=== PATIENT | female | born 1995 | race Caucasian/White ===

== ENCOUNTER 2016-10-14 22:12 | Emergency (ER) | payer BC ==
[2016-10-14 22:23] VITALS: BP 136/74
--- NOTE | 2016-10-14 23:04 | EDM.PDOC ---
ED HISTORY OF PRESENT ILLNESS - General Chief Complaint: Respiratory Problem Stated Complaint: COUGH SORE THROAT Time Seen by Provider: 10/14/16 22:26 Source of Information: Reports: Patient, RN notes reviewed - History of Present Illness INITIAL COMMENTS - FREE TEXT/NARRATIVE: 21-year-old female comes in with concern about severe cough and some difficulty breathing. She first became ill about 8-10 days ago with nasal and sinus congestion. She was started on Z-Oseas for sinusitis. She started developing severe cough about 3 or 4 days ago. She was seen at one of the clinics today, prescribed doxycycline 100 mg twice a day and also prednisone. The cough has been more severe and bothersome this evening. She also feels more short of breath. she's had some chills and possible low-grade and continues to have nasal and sinus congestion - Related Data Allergies/ADRs: Allergies Allergy/AdvReac Type Severity Reaction Status Date / Time Penicillins Allergy Intermediate Hives Verified 10/14/16 22:23 Home Meds: Home Meds Ibuprofen [Motrin] 800 mg PO Q6H PRN 09/24/13 [History] Doxycycline [Vibramycin] 1 tab PO BID 10/14/16 [History] Orphenadrine [Norflex] 1 tab PO BID 10/14/16 [History] predniSONE 20 mg PO DAILY 10/14/16 [History] Past Medical History - Past Surgical History HEENT Surgical History: Reports: Oral surgery, Tonsillectomy Musculoskeletal Surgical History: Reports: Other (see below) Other Musculoskeletal Surgeries/Procedures:: arm surgery Social & Family History - Tobacco Use Smoking Status *Q: Never Smoker Second Hand Smoke Exposure: No - Caffeine Use Caffeine Use: Reports: None - Recreational Drug Use Recreational Drug Use: No ED ROS GENERAL - Review of Systems Review Of Systems: See Below Constitutional: Reports: fever, chills HEENT: Reports: Throat pain Respiratory: Reports: Shortness of Breath, Wheezing, Cough, Sputum (Scan) Cardiovascular: Reports: Chest pain GI/Abdominal: Reports: Nausea. Denies: Abdominal pain, Vomiting Musculoskeletal: Reports: other (Generalized achiness) Skin: Denies: rash Neurological: Denies: Numbness, Tingling ED EXAM, GENERAL - Physical Exam Exam: See Below General Appearance: alert, mild distress, other (Frequent nonproductive cough) Eye Exam: bilateral eye: PERRL Nose: normal inspection Throat/Mouth: Inflammation (Mild posterior) Head: No: facial swelling Neck: supple, full range of motion. No: lymphadenopathy (L), lymphadenopathy (R ) Respiratory/Chest: respiratory distress (Mild tachypnea). No: rhonchi, wheezing Cardiovascular: tachycardia Extremities: normal inspection, normal range of motion Neurological: alert, oriented, no motor/sensory deficits Skin Exam: Warm, Dry, Normal color Course - Vital Signs Last Recorded V/S: Last Vital Signs Temp 98.7 F 10/14/16 22:19 Pulse 100 10/14/16 22:19 Resp 18 10/14/16 22:19 BP 136/74 10/14/16 22:19 Pulse Ox 99 10/14/16 22:19 Departure - Departure Time of Disposition: 23:02 Disposition: Home, Self-Care 01 Condition: fair Clinical Impression: Bronchitis, Bronchitis Instructions: Acute Bronchitis, [id number] Referrals: Bing Gu VOCATIONAL NURSE [Primary Care Provider] - Forms: ED Department Discharge, Return to Work/School Form Additional Instructions: Continue doxycycline as previously prescribed, take prednisone as prescribed, drink plenty of fluids, vaporizer or steam as needed. Phenergan with codeine cough medication as needed for severe cough and to help you rest, albuterol inhaler 2 puffs every 4-6 hours as needed for severe cough or wheezing, followup clinic if not much better within 3-5 days
== END 2016-10-14 23:13 | disposition home or self-care (01) ==
LOC: JD.ED 22:12
DX: J40 Bronchitis, not specified as acute or chronic (principal); Z88.0 Allergy status to penicillin; Z79.899 Other long term (current) drug therapy; Z98.890 Other specified postprocedural states
CPT/HCPCS: 99283

== ENCOUNTER 2016-10-15 00:20 | Emergency (ER) | payer BC ==
[2016-10-15 00:35] VITALS: BP 150/84
[2016-10-15] MEDS ORDERED: Albuterol 0.083% 2.5 MG/3 ML Neb Soln NEB ONE (00:48)
[2016-10-15] MEDS ORDERED: predniSONE 20 MG Tab PO ONE (00:48)
[2016-10-15] MEDS ORDERED: predniSONE 20 MG Tab ONE (00:54)
[2016-10-15] MEDS ORDERED: Ondansetron 4 MG Tab.DIS PO ONE (01:37)
--- NOTE | 2016-10-15 02:16 | EDM.PDOC ---
ED HISTORY OF PRESENT ILLNESS - General Chief Complaint: Respiratory Problem Stated Complaint: SHORTNESS OF BREATH Time Seen by Provider: 10/15/16 00:45 Source of Information: Reports: Patient, RN notes reviewed - History of Present Illness INITIAL COMMENTS - FREE TEXT/NARRATIVE: 21-year-old female returns to the ED after discharge just a very short time ago evaluation and treatment of bronchitis and upper respiratory infection. Please see that record for details. Order been seen at the clinic earlier today and also late last week about 6 days ago. She is on her second round of antibiotics. Prednisone was prescribed earlier today at the clinic she has not taken it yet. She came in this past evening primarily because of severe repetitive nonproductive cough. She was prescribed an albuterol inhaler and also Phenergan with codeine cough medication to help her rest. She went home took a warm shower and became much more short of breath which is her major concern and problem at this time. Her cough continues to be nonproductive. - Related Data Allergies/ADRs: Allergies Allergy/AdvReac Type Severity Reaction Status Date / Time Penicillins Allergy Intermediate Hives Verified 10/14/16 22:23 Home Meds: Home Meds Ibuprofen [Motrin] 800 mg PO Q6H PRN 09/24/13 [History] Doxycycline [Vibramycin] 1 tab PO BID 10/14/16 [History] Orphenadrine [Norflex] 1 tab PO BID 10/14/16 [History] predniSONE 20 mg PO DAILY 10/14/16 [History] Ondansetron [Zofran ODT] 4 mg PO Q6H PRN #7 tab.dis 10/15/16 [Rx] Past Medical History - Past Surgical History HEENT Surgical History: Reports: Oral surgery, Tonsillectomy Musculoskeletal Surgical History: Reports: Other (see below) Other Musculoskeletal Surgeries/Procedures:: arm surgery Social & Family History - Family History Family Medical History: Noncontributory - Tobacco Use Smoking Status *Q: Never Smoker Second Hand Smoke Exposure: No - Caffeine Use Caffeine Use: Reports: None - Recreational Drug Use Recreational Drug Use: No ED ROS GENERAL - Review of Systems Review Of Systems: See Below Constitutional: Reports: fever (Patient has had intermittent low-grade fever and now after the warm shower presents with temp of 101.4) HEENT: Reports: Sinus problem (Has been nasal and sinus congestion), Throat pain Respiratory: Reports: Cough (Severe repetitive nonproductive). Denies: Sputum, Hemoptysis Cardiovascular: Reports: Chest pain (With coughing) GI/Abdominal: Reports: Nausea. Denies: Abdominal pain, Vomiting Musculoskeletal: Denies: neck pain, shoulder pain Skin: Denies: rash Neurological: Denies: Numbness, Tingling ED EXAM, GENERAL - Physical Exam Exam: See Below General Appearance: alert, anxious, moderate distress, other (Frequent nonproductive cough) Eye Exam: bilateral eye: PERRL Throat/Mouth: Inflammation (Posterior pharynx is mildly inflamed) Neck: supple. No: lymphadenopathy (L), lymphadenopathy (R) Respiratory/Chest: wheezing (Patient does have some mild wheezing on expiration , moving air fairly well in spite of that). No: rhonchi, stridor Cardiovascular: tachycardia Neurological: alert, oriented, no motor/sensory deficits Skin Exam: Warm, Dry, No rash Course - Vital Signs Last Recorded V/S: Last Vital Signs Temp 101.4 F H 10/15/16 00:32 Pulse 121 H 10/15/16 00:32 Resp 24 H 10/15/16 00:32 BP 150/84 H 10/15/16 00:32 Pulse Ox 98 10/15/16 00:55 - Orders/Labs/Meds Orders: Active Orders 24 hr Category Date Time Status RT Aerosol Therapy [RC] ASDIRECTED Care 10/15/16 00:49 Active Chest 1V Frontal [CR] Stat Exams 10/15/16 01:37 Taken Meds: Medications Discontinued Medications Generic Name Dose Route Start Last Admin Trade Name Freq PRN Reason Stop Dose Admin Albuterol 2.5 mg 10/15/16 00:48 10/15/16 00:53 Proventil Neb Soln NEB 10/15/16 00:49 2.5 mg ONETIME ONE Administration Ondansetron HCl 4 mg 10/15/16 01:37 10/15/16 01:46 Zofran Odt PO 10/15/16 01:38 4 mg ONETIME ONE Administration Prednisone 40 mg 10/15/16 00:48 10/15/16 00:54 Prednisone PO 10/15/16 00:49 40 mg ONETIME ONE Administration Prednisone Confirm 10/15/16 00:54 10/15/16 00:54 Prednisone Administered 10/15/16 00:55 Not Given Dose 20 mg .ROUTE .STK-MED ONE - Re-Assessments/Exams Free Text/Narrative Re-Assessment/Exam: 10/15/16 02:25 We did give an albuterol neb treatment. She states her chest still feels "tight " but she is breathing and moving air more comfortably. I do not hear wheezing on repeat exam. She did vomit a short time ago, she states this was do to gag and sensation in her throat. We have given Zofran 4 mg ODT. We did check a chest x-ray to make sure she does not have a developing pneumonia. Chest x-ray is clear. Discharge instructions as documented Departure - Departure Time of Disposition: 02:12 Disposition: Home, Self-Care 01 Clinical Impression: Bronchitis Upper respiratory infection Qualifiers: URI type: unspecified URI Qualified Code(s): J06.9 - Acute upper respiratory infection, unspecified Dyspnea Qualifiers: Dyspnea type: unspecified Qualified Code(s): R06.00 - Dyspnea, unspecified Prescriptions: Ondansetron [Zofran ODT] 4 mg PO Q6H PRN #7 tab.dis PRN Reason: Nausea/Vomiting Instructions: Shortness of Breath, Acute Bronchitis, [id number], Upper Respiratory Infection, Adult, [id number] Referrals: PCP,Unknown [Primary Care Provider] - Forms: ED Department Discharge Additional Instructions: Rest, drink plenty of water to maintain hydration, continue current medications as previously prescribed, I recommend you take the prednisone once daily in the morning. Use the albuterol inhaler 2 puffs every 4-6 hours as needed for cough or difficulty breathing, Zofran if needed for further nausea or vomiting, followup clinic if not much better within 3-4 days as expected, return to ED as needed - My Orders Last 24 Hours: My Active Orders 10/15/16 00:49 RT Aerosol Therapy [RC] ASDIRECTED 10/15/16 01:37 Chest 1V Frontal [CR] Stat - Assessment/Plan Last 24 Hours: My Active Orders 10/15/16 00:49 RT Aerosol Therapy [RC] ASDIRECTED 10/15/16 01:37 Chest 1V Frontal [CR] Stat
--- NOTE | 2016-10-15 10:54 | CR ---
Chest: Portable view of the chest was obtained. Comparison: Previous chest x-ray of 08/03/11. Heart size and mediastinum are within normal limits. Lungs are clear. Bony structures are grossly intact. Minimal scoliosis is noted. Impression: 1. Nothing acute is identified on portable chest x-ray. Diagnostic code #1
== END 2016-10-15 02:29 | disposition home or self-care (01) ==
LOC: JD.ED 00:20
DX: J40 Bronchitis, not specified as acute or chronic (principal); J06.9 Acute upper respiratory infection, unspecified; Z98.890 Other specified postprocedural states; Z79.899 Other long term (current) drug therapy; Z88.0 Allergy status to penicillin
CPT/HCPCS: 71010; 94664; 99285; A9270; 99283

== ENCOUNTER 2019-09-28 18:40 | Emergency (ER) | payer BC ==
--- NOTE | 2019-09-28 18:54 | EDM.PDOC ---
ED HPI GENERAL MEDICAL PROBLEM - General Chief Complaint: Lower Extremity Injury/Pain Stated Complaint: left ankle injury Time Seen by Provider: 09/28/19 18:42 Source of Information: Reports: Patient History Limitations: Reports: No Limitations - History of Present Illness INITIAL COMMENTS - FREE TEXT/NARRATIVE: Patient is a 24-year-old female who presents with complaints of pain to her left ankle after stepping in a hole. She states that after stepping in a hole she states that she felt a pop and has been having pain since the injury. This happened about 10 to 15 minutes prior to arrival. She has not taken anything for pain. States it is very painful to bear weight. No history of previous injury to that extremity. Left Ankle Pain Score (Numeric/FACES): 10 - Related Data Allergies Allergy/AdvReac Type Severity Reaction Status Date / Time Penicillins Allergy Intermediate Hives Verified 09/28/19 18:49 Home Meds: Home Meds Ibuprofen [Motrin] 800 mg PO Q6H PRN 09/24/13 [History] Past Medical History Cardiovascular History: Reports: None Respiratory History: Reports: None Gastrointestinal History: Reports: None Genitourinary History: Reports: None FUR COMBER History: Reports: None Neurological History: Reports: None Psychiatric History: Reports: None Endocrine/Metabolic History: Reports: Obesity/BMI 30+ Hematologic History: Reports: None Immunologic History: Reports: None Oncologic (Cancer) History: Reports: None Dermatologic History: Reports: None - Infectious Disease History Infectious Disease History: Reports: None - Past Surgical History HEENT Surgical History: Reports: Adenoidectomy, Oral Surgery, Tonsillectomy Musculoskeletal Surgical History: Reports: Other (See Below) Other Musculoskeletal Surgeries/Procedures:: 3 arm surgeries on the right side. Social & Family History - Family History Family Medical History: Noncontributory - Tobacco Use Smoking Status *Q: Never Smoker - Caffeine Use Caffeine Use: Reports: Coffee, Energy Drinks - Recreational Drug Use Recreational Drug Use: No Review of Systems - Review of Systems Review Of Systems: Comprehensive ROS is negative, except as noted in HPI. ED EXAM, GENERAL - Physical Exam Exam: See Below Exam Limited By: No Limitations General Appearance: Alert, WD/WN, No Apparent Distress Respiratory/Chest: No Respiratory Distress, Lungs Clear, Normal Breath Sounds, No Accessory Muscle Use, Chest Non-Tender Cardiovascular: Normal Peripheral Pulses, Regular Rate, Rhythm, No Edema, No Gallop, No JVD, No Murmur, No Rub Extremities: Other (tenderness and mild edema to the lateral malleolus and posterior ankle. CMS intact distal to the injury.) Neurological: Alert, Oriented, CN II-XII Intact, Normal Cognition, Normal Gait, Normal Reflexes, No Motor/Sensory Deficits Psychiatric: Normal Affect, Normal Mood Course - Vital Signs Last Recorded V/S: Last Vital Signs Temp 97.7 F 09/28/19 18:46 Pulse 104 H 09/28/19 18:46 Resp 20 09/28/19 18:46 BP 122/88 09/28/19 18:46 Pulse Ox 98 09/28/19 18:46 - Orders/Labs/Meds Orders: Active Orders 24 hr Category Date Time Status DME for Discharge [COMM] Routine Oth 09/28/19 19:26 Ordered - Re-Assessments/Exams Free Text/Narrative Re-Assessment/Exam: xray was negative for any acute fractures. We will apply an air splint and provide crutches. Discharge instructions as documented. Departure - Departure Time of Disposition: 19:58 Disposition: Home, Self-Care 01 Condition: Good Clinical Impression: Ankle sprain Qualifiers: Encounter type: initial encounter Involved ligament of ankle: unspecified ligament Laterality: left Qualified Code(s): S93.402A - Sprain of unspecified ligament of left ankle, initial encounter - Discharge Information *PRESCRIPTION DRUG MONITORING PROGRAM REVIEWED*: No *COPY OF PRESCRIPTION DRUG MONITORING REPORT IN PATIENT [place]: No Instructions: Ankle Sprain, [id number] Referrals: Viji Rubio PA-C [Primary Care Provider] - Jones Garcia MD [Physician] - Forms: ED Department Discharge, ED Return to Work/School Form Additional Instructions: You were seen in the emergency department today for pain and swelling to her left ankle after stepping in a hole. X-rays were done and shows no fractures. You likely sprained your ankle. You have been provided an air splint as well as crutches. Use these for the next couple days. You may then begin to gradually bear weight on the extremity still using the air splint. After a few days of walking with the air splint, you may start walking without the air splint. Recommend that she elevate the extremity when at rest and ice over the area intermittently. You may use [id number] Tylenol or ibuprofen as needed for any pain. If you are still having significant pain by the end of next week, I would recommend that you follow-up with Dr. Garcia, orthopedics. The number to schedule with him is listed below. Return to the ER as needed. Sepsis Event Note - Evaluation Sepsis Screening Result: No Definite Risk - Focused Exam Date Exam was Performed: 09/29/19 Time Exam was Performed: 13:04 - My Orders Last 24 Hours: My Active Orders 09/28/19 19:26 DME for Discharge [COMM] Routine - Assessment/Plan Last 24 Hours: My Active Orders 09/28/19 19:26 DME for Discharge [COMM] Routine
[2019-09-28 19:19] VITALS: BP 122/88; PULSE 104
--- NOTE | 2019-09-28 19:22 | CR ---
Left ankle: 4 views left ankle were obtained. Comparison: No prior left ankle study is available. Ankle mortise is symmetric. No fracture, dislocation or other bony abnormality is appreciated. Impression: 1. No abnormality is appreciated on left ankle exam. Diagnostic code #1 Study was dictated in MDT
== END 2019-09-28 20:05 | disposition home or self-care (01) ==
LOC: JD.ED 18:40
DX: S93.402A Sprain of unspecified ligament of left ankle, initial encounter (principal); Z88.0 Allergy status to penicillin; E66.9 Obesity, unspecified; Z68.32 Body mass index [BMI] 32.0-32.9, adult; X50.9XXA Other and unspecified overexertion or strenuous movements or postures, initial encounter
CPT/HCPCS: 73610-26-LT; 73610-LT; 99282; 99283-25

== ENCOUNTER 2021-03-11 17:55 | Emergency (ER) | payer OTHER, BC ==
[2021-03-11 18:52] VITALS: BP 133/93; PULSE 90
[2021-03-11] MEDS ORDERED: Sodium Chloride 0.9% 1,000 ML IV STA (19:27)
[2021-03-11] MEDS ORDERED: Ondansetron 4 MG/2 ML SDV IVPUSH ONE (19:27)
[2021-03-11] MEDS ORDERED: HYDROmorphone 0.5 MG/0.5 ML Syringe IVPUSH ONE (19:27)
--- NOTE | 2021-03-11 19:33 | EDM.PDOC ---
ED HPI GENERAL MEDICAL PROBLEM - General Chief Complaint: Upper Extremity Injury/Pain Stated Complaint: POSS ARM INFECTION Time Seen by Provider: 03/11/21 19:19 Source of Information: Reports: Patient, RN Notes Reviewed History Limitations: Reports: No Limitations - History of Present Illness INITIAL COMMENTS - FREE TEXT/NARRATIVE: Patient is a 26-year-old female presenting to the emergency department from the [facility]. She reports Tuesday, she cut her right hand on a place of plastic at work. That evening, she developed swelling in the hand. Yesterday during the day, she thought it was getting better, however upon waking today, the swelling extended into her forearm and she feels like she is swollen up through her arm as well. She has significant pain and throbbing to the area. Denies any fever. At the [facility], x-rays were done. She states that they were going to do blood work, however that did not happen. She did not get the results of her x-ray. They told her to come to the ER and that it is "life-threatening and limb threatening. We did receive a call from the clinician at [facility] and there was concern that she could have necrotizing fasciitis. Patient denies any fevers. Last took Advil around 4:00 this morning. She has not eaten anything today. Treatments JOB SETTER HONING: Reports: Other (see below) Other Treatments JOB SETTER HONING: advil at 0345 Right Arm Pain Score (Numeric/FACES): 10 - Related Data Allergies Allergy/AdvReac Type Severity Reaction Status Date / Time Penicillins Allergy Severe Hives Verified 03/11/21 18:48 Home Meds: Home Meds Ibuprofen [Motrin] 800 mg PO Q6H PRN 09/24/13 [History] Doxycycline [Vibramycin] 100 mg PO BID #15 cap 03/11/21 [Rx] Past Medical History Cardiovascular History: Reports: None Respiratory History: Reports: None Gastrointestinal History: Reports: None Genitourinary History: Reports: None TECHNICAL MANAGER History: Reports: None Neurological History: Reports: None Psychiatric History: Reports: None Endocrine/Metabolic History: Reports: Obesity/BMI 30+ Hematologic History: Reports: None Immunologic History: Reports: None Oncologic (Cancer) History: Reports: None Dermatologic History: Reports: None - Infectious Disease History Infectious Disease History: Reports: None - Past Surgical History HEENT Surgical History: Reports: Adenoidectomy, Oral Surgery, Tonsillectomy Musculoskeletal Surgical History: Reports: Other (See Below) Other Musculoskeletal Surgeries/Procedures:: 3 arm surgeries on the right side. Social & Family History - Family History Family Medical History: No Pertinent Family History - Tobacco Use Tobacco Use Status *Q: Never Tobacco User - Caffeine Use Caffeine Use: Reports: Tea - Recreational Drug Use Recreational Drug Use: No Review of Systems - Review of Systems Review Of Systems: See Below Constitutional: Reports: No Symptoms. Denies: Chills, Fever Eyes: Reports: No Symptoms Ears: Reports: No Symptoms Nose: Reports: No Symptoms Mouth/Throat: Reports: No Symptoms Respiratory: Reports: No Symptoms Cardiovascular: Reports: No Symptoms GI/Abdominal: Reports: No Symptoms Genitourinary: Reports: No Symptoms Musculoskeletal: Reports: Other (Right arm pain and swelling) Skin: Reports: No Symptoms Neurological: Reports: No Symptoms Psychiatric: Reports: No Symptoms ED EXAM, GENERAL - Physical Exam Exam: See Below Exam Limited By: No Limitations General Appearance: Alert, WD/WN, No Apparent Distress Respiratory/Chest: No Respiratory Distress, Lungs Clear, Normal Breath Sounds, No Accessory Muscle Use, Chest Non-Tender Cardiovascular: Normal Peripheral Pulses, Regular Rate, Rhythm, No Edema, No Gallop, No JVD, No Murmur, No Rub Extremities: Other (1 cm superficial laceration to the top of the right hand. Mild visible swelling to the right forearm. Tenderness to palpation throughout the upper and lower arm. Patient reports upper arm feels swollen and tight. No obvious redness or warmth.) Neurological: Alert, Oriented, CN II-XII Intact, Normal Cognition, Normal Gait, Normal Reflexes, No Motor/Sensory Deficits Psychiatric: Normal Affect, Normal Mood Course - Vital Signs Last Recorded V/S: Last Vital Signs Temp 98.3 F 03/11/21 18:51 Pulse 90 03/11/21 18:51 Resp 20 03/11/21 18:51 BP 133/93 H 03/11/21 18:51 Pulse Ox 99 03/11/21 18:51 - Orders/Labs/Meds Orders: Active Orders 24 hr Category Date Time Status Peripheral IV Care [RC] . DIRECTED Care 03/11/21 19:28 Active BLOOD CULTURE [MREF] Stat Lab 03/11/21 19:40 Received BLOOD CULTURE [MREF] Stat Lab 03/11/21 19:50 Received Sodium Chloride 0.9% [Normal Saline] 1,000 ml Med 03/11/21 19:27 Active IV NOW Sodium Chloride 0.9% [Saline Flush] Med 03/11/21 19:27 Active 10 ml FLUSH ASDIRECTED PRN Blood Culture x2 Reflex Set [OM.PC] Stat Oth 03/11/21 19:27 Ordered Peripheral IV Insertion Adult [OM.PC] Stat Oth 03/11/21 19:27 Ordered Medication Orders Sodium Chloride (Normal Saline) 1,000 mls @ 100 mls/hr IV NOW STA Stop: 03/12/21 05:26 Last Admin: 03/11/21 19:44 Dose: 100 mls/hr Documented by: MORALES Sodium Chloride (Sodium Chloride 0.9% 10 Ml Syringe) 10 ml FLUSH ASDIRECTED PRN PRN Reason: Keep Vein Open Last Admin: 03/11/21 20:06 Dose: 10 ml Documented by: [id number] Admin: 03/11/21 19:50 Dose: 10 ml Documented by: MORALES Labs: Laboratory Tests 03/11/21 03/11/21 03/11/21 Range/Units 19:40 19:53 21:15 WBC 8.65 (3.98-10.04) K/mm3 RBC 4.86 (3.98-5.22) M/mm3 Hgb 13.8 (11.2-15.7) gm/dl Hct 43.0 (34.1-44.9) % MCV 88.5 D (79.4-94.8) fl MCH 28.4 (25.6-32.2) pg MCHC 32.1 L (32.2-35.5) g/dl RDW Std Deviation 44.6 (36.4-46.3) fL Plt Count 274 (182-369) K/mm3 MPV 10.7 (9.4-12.3) fl Neut % (Auto) 65.8 (34.0-71.1) % Lymph % (Auto) 24.4 (19.3-51.7) % Childress % (Auto) 8.4 (4.7-12.5) % Eos % (Auto) 0.9 (0.7-5.8) Baso % (Auto) 0.2 (0.1-1.2) % Neut # (Auto) 5.68 (1.56-6.13) K/mm3 Lymph # (Auto) 2.11 (1.18-3.74) K/mm3 Childress # (Auto) 0.73 H (0.24-0.36) K/mm3 Eos # (Auto) 0.08 (0.04-0.36) K/mm3 Baso # (Auto) 0.02 (0.01-0.08) K/mm3 D-Dimer, Quantitative < 0.19 L (0.19-0.50) mg/L Sodium 140 (136-145) mEq/L Potassium 3.4 L (3.5-5.1) mEq/L Chloride 104 (98-107) mEq/L Carbon Dioxide 26 (21-32) mEq/L Anion Gap 13.4 (5-15) BUN 14 (7-18) mg/dL Creatinine 0.7 (0.55-1.02) mg/dL Est Cr Clr Drug Dosing 109.59 mL/min Estimated GFR (MDRD) > 60 (>60) mL/min BUN/Creatinine Ratio 20.0 H (14-18) Glucose 83 (70-99) mg/dL Calcium 9.0 (8.5-10.1) mg/dL Total Bilirubin 0.4 (0.2-1.0) mg/dL AST 15 (15-37) U/L ALT 32 (14-59) U/L Alkaline Phosphatase 70 (46-116) U/L C-Reactive Protein 0.9 (<1.0) mg/dL Total Protein 7.5 (6.4-8.2) g/dl Albumin 4.2 (3.4-5.0) g/dl Globulin 3.3 gm/dL Albumin/Globulin Ratio 1.3 (1-2) Meds: Medications Generic Name Dose Route Start Last Admin Trade Name Freq PRN Reason Stop Dose Admin Sodium Chloride 1,000 mls @ 100 mls/hr 03/11/21 19:27 03/11/21 19:44 Normal Saline IV 03/12/21 05:26 100 mls/hr NOW STA Administration Sodium Chloride 10 ml 03/11/21 19:27 03/11/21 20:06 Sodium Chloride 0.9% 10 Ml Syringe FLUSH 10 ml ASDIRECTED PRN Administration Keep Vein Open Discontinued Medications Generic Name Dose Route Start Last Admin Trade Name Rober PRN Reason Stop Dose Admin Doxycycline Hyclate 100 mg 03/11/21 21:52 03/11/21 21:59 Doxycycline 100 Mg Cap PO 03/11/21 21:53 100 mg ONETIME ONE Administration Hydromorphone HCl 0.5 mg 03/11/21 19:27 03/11/21 19:46 Hydromorphone 0.5 Mg/0.5 Ml Syringe IVPUSH 03/11/21 19:28 0.5 mg ONETIME ONE Administration Iopamidol 100 ml 03/11/21 19:38 03/11/21 20:06 Iopamidol 612 Mg/Ml 100 Ml Bottle IVPUSH 03/11/21 19:39 100 ml ONETIME ONE Administration Ondansetron HCl 4 mg 03/11/21 19:27 03/11/21 19:44 Ondansetron 4 Mg/2 Ml Sdv IVPUSH 03/11/21 19:28 4 mg ONETIME ONE Administration - Re-Assessments/Exams Free Text/Narrative Re-Assessment/Exam: Patient is a 26-year-old female presenting to the emergency department from the [facility] for evaluation with concerns of possible necrotizing fasciitis. She reports that she cut the top of her hand on a piece of plastic at work and has been having swelling intermittently since. She complains of pain all the way up her arm. On exam, there is minimal soft possible swelling to her forearm, however there is no redness or warmth. She states that her arm is tender to palpation of the upper arm, but there is no obvious swelling. She states that it feels tight. Exam does not reveal any obvious signs of infection, however she is quite concerned as she was advised that this could be "life and limb threatening". I will order blood work, and CT scan of the right upper extremity. I will give her Dilaudid 0.5 mg IV and Zofran 4 mg IV for pain. I will start IV fluids of NS at 100 mils per hour. I spoke with Herminia, [employer] technical lead senior developer. She visited with the radiologist who recommend that I order a right forearm x-ray and they will extend it from the hand up to the shoulder. Recommended IV contrast. 03/11/212014 Hematology is unremarkable. WBCs are normal at 8.65. CRP 0.9. CT scan shows no acute abnormalities. I have ordered a D-dimer to rule out DVT. 03/11/21 21:51 D-dimer is undetectably low. We will treat with an oral antibiotic to cover for any possible underlying infection, although exam and work-up do not show any evidence of infection. Patient will be started on doxycycline twice daily for 8 days. Recommend calling tomorrow morning to set up a follow-up appoint with her primary care provider. Discussed return precautions. Discharge instructions as documented. Departure - Departure Time of Disposition: 21:51 Disposition: Home, Self-Care 01 Condition: Good Clinical Impression: Arm pain, right - Discharge Information *PRESCRIPTION DRUG MONITORING PROGRAM REVIEWED*: No *COPY OF PRESCRIPTION DRUG MONITORING REPORT IN PATIENT [place]: No Prescriptions: Doxycycline [Vibramycin] 100 mg PO BID #15 cap Referrals: Viji Rubio PA-C [Primary Care Provider] - Forms: ED Department Discharge Additional Instructions: You were seen in the emergency department today for pain to your right arm after injuring your hand earlier this week. Work-up included blood work and CT scan of your arm using IV contrast. Your work-up was found to be normal. There is no evidence of infection in your blood work or on the CT scan. You also do not have a blood clot in your arm. You have been started on doxycycline however to cover for any possible underlying infection, although there are no definitive si gns of infection at this time. Take this medication as prescribed. Use Tylenol and ibuprofen as needed for discomfort. Recommend calling tomorrow morning to set up follow-up with your primary care provider for her next available visit. If you should experience any new or worsening symptoms, please do not hesitate to return to the emergency department for reevaluation. Sepsis Event Note (ED) - Focused Exam Vital Signs: Vital Signs Temp Pulse Resp BP Pulse Ox 03/11/21 18:51 98.3 F 90 20 133/93 H 99 - My Orders Last 24 Hours: My Active Orders 03/11/21 19:27 Sodium Chloride 0.9% [Normal Saline] 1,000 ml IV NOW Sodium Chloride 0.9% [Saline Flush] 10 ml FLUSH ASDIRECTED PRN Blood Culture x2 Reflex Set [OM.PC] Stat Peripheral IV Insertion Adult [OM.PC] Stat 03/11/21 19:28 Peripheral IV Care [RC] . DIRECTED 03/11/21 19:40 BLOOD CULTURE [MREF] Stat 03/11/21 19:50 BLOOD CULTURE [MREF] Stat - Assessment/Plan Last 24 Hours: My Active Orders 03/11/21 19:27 Sodium Chloride 0.9% [Normal Saline] 1,000 ml IV NOW Sodium Chloride 0.9% [Saline Flush] 10 ml FLUSH ASDIRECTED PRN Blood Culture x2 Reflex Set [OM.PC] Stat Peripheral IV Insertion Adult [OM.PC] Stat 03/11/21 19:28 Peripheral IV Care [RC] . DIRECTED 03/11/21 19:40 BLOOD CULTURE [MREF] Stat 03/11/21 19:50 BLOOD CULTURE [MREF] Stat
[2021-03-11] MEDS ORDERED: Iopamidol 612 MG/ML 100 ML Bottle IVPUSH ONE (19:38)
[2021-03-11] MEDS: Sodium Chloride 0.9% 10 ML Syringe FLUSH PRN ×2 (19:50→20:06)
--- NOTE | 2021-03-11 20:33 | CT ---
CT of the right upper extremity Technique: Multiple axial sections through the right upper extremity were obtained. Intravenous contrast was utilized. Reconstructed coronal and sagittal images were obtained. Comparison: No prior upper extremity imaging is available. Findings: Muscles of the upper extremity appear unremarkable. No bony abnormality is appreciated. No subcutaneous abnormalities are seen. No focal areas of skin thickening are seen. Impression: 1. Nothing acute is seen on CT study of the right upper extremity. Diagnostic code #1
[2021-03-11] MEDS ORDERED: Doxycycline 100 MG Cap PO ONE (21:52)
== END 2021-03-11 22:22 | disposition home or self-care (01) ==
LOC: JD.ED 17:55
DX: S61.411A Laceration without foreign body of right hand, initial encounter (principal); E66.9 Obesity, unspecified; Z68.32 Body mass index [BMI] 32.0-32.9, adult; Z88.0 Allergy status to penicillin; W26.8XXA Contact with other sharp object(s), not elsewhere classified, initial encounter; Y99.0 Civilian activity done for income or pay
CPT/HCPCS: 36415; 73201; 80053; 85025; 85379; 86140; 87040; 96374; 96375; 99284; A9270; J1170; J2405; J7030; Q9967

== ENCOUNTER 2021-09-10 20:02 | Emergency (ER) | payer BC, OTHER ==
[2021-09-10 20:14] VITALS: BP 152/101; PULSE 102
== END 2021-09-10 20:45 | disposition home or self-care (01) ==
LOC: JD.ED 20:02
DX: M54.6 Pain in thoracic spine (principal); E66.9 Obesity, unspecified; Z68.31 Body mass index [BMI] 31.0-31.9, adult; Z88.0 Allergy status to penicillin
CPT/HCPCS: 99282; 99283

== ENCOUNTER 2024-07-14 04:03 | Emergency (ER) | payer OTHER ==
[2024-07-14 04:18] VITALS: BP 132/96
[2024-07-14] MEDS: Albuterol/Ipratropium 3.0-0.5 MG/3 ML Neb Soln NEB ONE (04:27)
[2024-07-14] MEDS: Dexamethasone 6 MG TABLET PO ONE (04:37)
[2024-07-14] MEDS: Acetaminophen/HYDROcodone 325-5 MG Tab PO ONE (04:38)
[2024-07-14 05:23] VITALS: PULSE 77
== END 2024-07-14 05:12 | disposition home or self-care (01) ==
LOC: JD.ED 04:03
DX: J11.1 Influenza due to unidentified influenza virus with other respiratory manifestations (principal); J98.01 Acute bronchospasm; Z88.0 Allergy status to penicillin; Z79.899 Other long term (current) drug therapy; Z86.16 Personal history of COVID-19; Z87.891 Personal history of nicotine dependence
CPT/HCPCS: 71046; 94640; 99285; J8540; 99284; J7620-GY